=== PATIENT | female | born 1960 | race Caucasian/White ===

== ENCOUNTER → 2020-06-29 10:36 | Outpatient (BNVA) | payer SELFPAY | PROVIDERS: Family Provider Nurse Practitioner; PCP Nurse Practitioner; Visit Provider Nurse Practitioner | DX: R10.9 Unspecified abdominal pain (principal) | CPT/HCPCS: 81000 ==

== ENCOUNTER 2020-07-08 10:05 | Outpatient (CLI) | payer SELFPAY ==
--- NOTE | 2020-07-08 11:30 | CT_ITS ---
WS: [id number] CT ABDOMEN AND PELVIS WITH CONTRAST HISTORY: abdomen pain TECHNIQUE: Imaging performed of the abdomen and pelvis with IV contrast. Single phase imaging of the abdomen. Coronal and sagittal reformats are submitted. All CT scans at [facility] use at least one of these dose optimization techniques: automated exposure control; mA and/or kV adjustment per patient size (includes targeted exams where dose is matched to clinical indication); or iterativ e reconstruction. IV CONTRAST: Omnipaque 300; 95 mL IV. Oral contrast: Yes. DLP: 1055.98 mGycm COMPARISON: None available. Lower thorax: Less than 4 mm pleural-based nodules in the lower lung marks. Heart is normal size. No hiatal hernia. Liver/biliary system: Normal size liver. There is a lobulated cyst in the LEFT lobe of liver measurin g 10 x 12 mm. No bile duct dilatation. Common bile duct is top normal size. Gallbladder: Normal. No gallstones or wall thickening. No pericholecystic fluid. Pancreas: Normal. Spleen: Normal. Adrenal glands: Normal. Right kidney: Normal. Left kidney: Normal. Aorta: Mild atherosclerosis with no aneurysm. Lymphadenopathy: None. Free fluid: None. GI tract: No GI tract obstruction. No evidence for appendicitis. There is mild diffuse constipation. There are few sigmoid diverticula without acute diverticulitis. Abdominal wall: Fat-containing umbilical hernia. Pelvis: Prior hysterectomy. Minimally distended urinary bladder. No free fluid or adenopathy in the p braulio. No mass. Bones: No osteoblastic or osteolytic bone disease. CT/CT abdomen pelvis w con* [id number] IMPRESSION: 1. No acute abdominal or pelvic abnormalities. No ascites or adenopathy apprec iated. 2. Moderate constipation. 3. LEFT lobe hepatic cyst.
[2020-07-08] MEDS: iohexol 300 mg/mL 50 mL Btl PO (11:31)
[2020-07-08] MEDS: iohexol 300 mg/mL 100 mL Btl IV (11:50)
== END 2020-07-08 10:06 | disposition home or self-care (01) ==
LOC: RADWPI 10:15
PROVIDERS: Family Provider Nurse Practitioner; PCP Nurse Practitioner; Visit Provider Nurse Practitioner
DX: R10.9 Unspecified abdominal pain (principal); K59.00 Constipation, unspecified; K76.89 Other specified diseases of liver
CPT/HCPCS: 74177; Q9967

== ENCOUNTER 2020-07-30 07:03 | Outpatient (CLI) | payer SELFPAY ==
--- NOTE | 2020-07-30 08:00 | NM_ITS ---
WS: [id number] NUCLEAR MEDICINE HIDA SCAN WITH GALLBLADDER EJECTION FRACTION HISTORY: upper right abdomen pain COMPARISON: None available. TECHNIQUE: The patient was intravenously injected with 8.0 mCi of TC99m Mebrofenin. Immediate imaging over the right upper quadrant was followed by 5 minute image and additional images for a total of 60 minutes. Normal uptake of radiotracer throughout the liver. Activity identified in the gallbladder at 20 minutes and well distended by 60 minutes. Activity in the proximal small bowel was seen by 20 minutes. Good washout of the radiotracer from the liver by 60 minutes. The patient then drank 8 ounces of Ensure Plus. Ejection fraction at 60 minutes was 90%. Normal GB ej ection fraction is 35-75%. Post fatty meal symptoms: None. NM/NM hepatobiliary w phar* [id number] IMPRESSION: 1. Normal HIDA scan. 2. Normal gallbladder ejection fraction.
== END 2020-07-30 07:04 | disposition home or self-care (01) ==
LOC: RAD 07:07
PROVIDERS: PCP Nurse Practitioner; Visit Provider Nurse Practitioner
DX: R10.11 Right upper quadrant pain (principal)
CPT/HCPCS: 78227; A9537

== ENCOUNTER 2020-08-17 14:08 | Outpatient (CLI) | payer SELFPAY ==
--- NOTE | 2020-08-17 14:15 | US_ITS ---
WS: [id number] ULTRASOUND THYROID TECHNIQUE: Ultrasound of the thyroid. CLINICAL INFORMATION: enlarged thyroid COMPARISON: None. FINDINGS: Thyroid: Right and left thyroid lobes demonstrate heterogeneous echotexture consistent with goiter. Small hypoechoic right thyroid nodule measuring 5.2 x 7.0 x 3.6 mm Right thyroid lobe: 3.8 cm x 1.6 cm x 1.8 cm Left thyroid lobe: 4.0 cm x 1.7 cm x 1.8 cm. 2 hypoechoic left thyroid nodule solid appearance measuring 9.1 x 9.3 x 5.4 mm and 6.6 x 7.9 x 5.1 mm Isthmus: 0.2 mm. Cervical lymphadenopathy: None. US/US thyroid [id number] IMPRESSION: 1. Enlarged thyroid with Heterogeneous echotexture consistent with thyroid goi ter. 2. Subcentimeter bilateral thyroid nodules. Recommend 12 month follow-up.
== END 2020-08-17 14:09 | disposition home or self-care (01) ==
LOC: RAD 14:10
PROVIDERS: PCP Nurse Practitioner; Visit Provider Nurse Practitioner
DX: E04.9 Nontoxic goiter, unspecified (principal); E04.1 Nontoxic single thyroid nodule
CPT/HCPCS: 76536

== ENCOUNTER → 2020-09-24 13:25 | Outpatient (BNVA) | payer SELFPAY | PROVIDERS: PCP Nurse Practitioner; Visit Provider Nurse Practitioner | DX: E03.8 Other specified hypothyroidism (principal); E04.9 Nontoxic goiter, unspecified | CPT/HCPCS: 84443 ==

== ENCOUNTER 2020-11-06 11:48 | Outpatient (CLI) | payer SELFPAY ==
[2020-11-06 11:59] VITALS: BMI 23.0
--- NOTE | 2020-11-06 12:00 | ECG_ITS ---
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 Interpretive Statements NAME OF STUDY: TREADMILL STRESS ECHOCARDIOGRAM INDICATION: Chest Pain, PROCEDURE: At the baseline, the patient's blood pressure was 114/78 with a heart rate of 88. The baseline electrocardiogram showed normal sinus rhythm with some nonspecific T wave changes. The patient exercised for 3 minutes and 20 seconds on a standard Darion protocol. Patient attained a maximum heart rate of 121 beats per minute(75% of the maximum predicted heart rate) with a blood pressure at the peak exercise of 129/84 mm Hg. The EKG at the peak exercise revealed some nonspecific ST-T changes. Because of the artifact, EKG is difficult to interpret. Patient did not have any chest pain or any significant cardiac arrhythmias with the exercise During the recovery phase, there were no new changes. Blood pressure at the end of the recovery phase was 117/74 mm Hg with a heart rate of 71 per minute. CONCLUSION: 1. Nonspecific EKG response to treadmill exercise 2. No exercise-induced chest pain or cardiac arrhythmia 3. Impaired exercise tolerance, attained a maximum of 7.0 METs Electronically Signed On 11-13-2020 12:06:06 MID LEVEL BUSINESS ANALYST by Christy Gasca M.D. [email or web address]
[2020-11-06 12:37] VITALS: BP 117/74; PULSE 70
--- NOTE | 2020-11-06 12:38 | PC.NURSE ---
pt was only able to complete 2:45 on the treadmill. Stated her chest hurt too much to continue. went ahead and completed echo part. pt stated her chest pain/pressure is a constant 4. pt stated she ended the treadmill portion with a 9 on a 0-10 scale.
--- NOTE | 2020-11-06 13:00 | USCV_ITS ---
Stress Echo Orly Jimenez Age: 60 Gender: F : 1960 Exam Date: 11/06/2020 12:14 Ordering Phys: Christy Gasca MD ([email or web address]) Technologist: Giovanna La [place] [facility] [place]ication: chest pain Rhythm: Sinus Patient History: Chest pain Cardiac Medications: NONE Medications in past 24 hours: NONE Contrast: Stress Results Protocol: Darion Total dose(mL): Exercise Duration (min:sec): 2:50 METS: 7 Resting HR: 86 Resting BP: 114 / 78 Peak HR: 121 Peak BP: 129 / 78 Max Predicted HR: 161 75 % Max Predicted HR Target HR: 137 Double Product: 11308 Stress Summary: The patient's target heart rate was not achieved due to chest pain BP Response: Normal Reason for Termination: chest pain Cardiac Symptoms: sharp chest pains ECG Analysis Resting ECG: Please see separate report Stress ECG: Please see separate report Arrhythmia: Please see separate report MEASUREMENTS (Male/Female) Normal Values FINDINGS The baseline echocardiogram revealed normal LV size ejection fraction. Segmental wall motion analysis revealed no gross wall motion normalities. The aortic root appears to be of normal size. No pericardial effusion. No significant morphology abnormalities were noted in the mitral valve or the aortic valve. With the peak exercise, there is good augmentation of all the segments with no exercise-induced wall motion normalities. During the recovery phase, no new wall motion normalities were noted. CONCLUSIONS Normal echocardiographic response to treadmill exercise. No significant coronary ischemia, based on the above findings Dr Christy Gasca MD [facility] (Electronically Signed) Final Date: 06 November 2020 16:27 S
== END 2020-11-06 11:49 | disposition home or self-care (01) ==
PROVIDERS: PCP Nurse Practitioner; Visit Provider Internal Medicine Cardiovascular Disease
DX: R07.89 Other chest pain (principal)
CPT/HCPCS: 93017; 93350

== ENCOUNTER → 2020-12-09 09:37 | Outpatient (BNVA) | payer SELFPAY | PROVIDERS: PCP Nurse Practitioner; Visit Provider Internal Medicine Cardiovascular Disease | DX: R06.00 Dyspnea, unspecified (principal); Z20.822 Contact with and (suspected) exposure to COVID-19 | CPT/HCPCS: 87635 ==

== ENCOUNTER → 2020-12-09 09:37 | Outpatient (BNVA) | payer SELFPAY | PROVIDERS: PCP Nurse Practitioner; Visit Provider Internal Medicine Cardiovascular Disease | DX: Z01.812 Encounter for preprocedural laboratory examination (principal); R06.00 Dyspnea, unspecified | CPT/HCPCS: 87635 ==

== ENCOUNTER 2020-12-15 08:12 | Outpatient (CLI) | payer SELFPAY ==
--- NOTE | 2020-12-15 14:00 | PFTS_ITS ---
Date of Study:12/15/20 Date of Dictation:12/18/20 MECHANICS: Forced vital capacity (FVC) is normal. Forced expiratory volume in one second (FEV1) is normal. FEV1/FVC is normal. FLOW VOLUME LOOP: Normal . LUNG VOLUMES: Total lung capacity (TLC) is normal. Residual volume (RV) is mildly reduced 79%. DIFFUSING CAPACITY FOR CARBON MONOXIDE: Normal . INTERPRETATION: Normal spirometry. Mildly reduced lung volumes suggestive of some restriction. Normal gas transfer. Please correlate clinically MTDD
== END 2020-12-15 08:13 | disposition home or self-care (01) ==
LOC: RT 08:13
PROVIDERS: PCP Nurse Practitioner; Visit Provider Internal Medicine Cardiovascular Disease
DX: R06.00 Dyspnea, unspecified (principal)
CPT/HCPCS: 94010; 94726; 94729

== ENCOUNTER 2020-12-31 11:09 | Outpatient (CLI) | payer SELFPAY ==
[2020-12-31 11:56] LABS: Basophils # 0.1 10^3/uL (0.0-0.1); Basophils % 0.9 %; Eosinophils # 0.1 10^3/uL (0.0-0.8); Eosinophils % 1.3 %; Hematocrit 42.4 % (37.0-47.0); Hemoglobin 13.9 g/dL (11.5-15.3); Lymphocytes # 2.5 10^3/uL (0.8-4.8); Lymphocytes % 36.9 %; Mean Corpuscular HGB Conc 32.8 g/dL (30.0-36.0); Mean Corpuscular Hemoglobin 31.4 pg (28.0-34.0); Mean Corpuscular Volume 95.7 fL (81-99); Mean Platelet Volume 9.6 fL (7.4-10.4); Monocytes # 0.5 10^3/uL (0.2-0.9); Monocytes % 6.6 %; Neutrophils # 3.66 10^3/uL (1.8-7.7); Neutrophils % 54.2 %; Nucleated Red Blood Cells % 0 %; Platelet Count 247 10^3/cmm (130-400); Red Blood Count 4.43 10^6/uL (4.1-5.3); Red Cell Distribution Width 12.2 % (12.1-15.1); White Blood Count 6.8 10^3/uL (4.0-10.0)
[2020-12-31 12:22] LABS: Alanine Aminotransferase 34 U/L (0-33); Albumin Level 3.9 g/dL (3.5-5.2); Alkaline Phosphatase 139 IU/L (35-105); Anion Gap 11.9 (5-19); Aspartate Amino Transferase 25 U/L (0-32); Blood Urea Nitrogen 16 mg/dL (6-20); C Reactive Protein 2.1 mg/L (0.0-4.9); Calcium 8.7 mg/dL (8.5-10.5); Carbon Dioxide 27 mmol/L (22-29); Chloride 103 mmol/L (98-107); Globulin 3.2 g/dL (1.3-4.6); Glomerular Filtration Rate 50.8 mL/min (90-130); Glucose 78 mg/dL (65-115); Osmolality Calculated 286 mOsm/kg (285-295); Potassium 3.9 mmol/L (3.5-5.1); Sodium 138 mmol/L (136-145); Total Bilirubin 0.2 mg/dL (0.15-1.2); Total Protein 7.1 g/dL (6.6-8.7)
[2020-12-31 12:35] LABS: Erythrocyte Sedimentation Rate 12 mm/hr (0-15)
[2021-01-01 14:23] LABS: Anti-Double Strand DNA AB <1 IU/mL; Jo-1 Antibody <1.0 NEG AI (<1.0 NEG); SM/RNP Antibodies <1.0 NEG AI (<1.0 NEG); SS-B/LA IGG <1.0 NEG AI (<1.0 NEG); Scleroderma Ab(Scl-70) Ab <1.0 NEG AI (<1.0 NEG); Ss-A/Ro Igg <1.0 NEG AI (<1.0 NEG)
[2021-01-01 16:28] LABS: Alternaria Alternata (M6) Ige <0.10 kU/L; Alternaria Class 0; Bermuda Class 0; Bermuda Grass (G2) Ige <0.10 kU/L; Cat Dander (E1) Ige <0.10 kU/L; Cat Dander Class 0; Common Ragweed (Short) (W1) Ig <0.10 kU/L; D. Farinae Class 0; Dermatophagoides Class 0; Dermatophagoides Farinae (D2) <0.10 kU/L; Dermatophagoides Pteronyssinus <0.10 kU/L; Dog Dander (E5) Ige <0.10 kU/L; Dog Dander Class 0; Elm (T8) Ige <0.10 kU/L; Elm Class 0; English Plantain (W9) Ige <0.10 kU/L; English Plantain Class 0; House Dust (Greer) (H1) Ige <0.10 kU/L; House Dust (Hollister- Stier) <0.10 kU/L; House Dust Class 0; Immunoglobulin E 3 kU/L (<OR=114); Immunoglobulin E 4 kU/L (<OR=114); Johnson Grass (G10) Ige <0.10 kU/L; Johnson Grass Cl 0; June Grass Class 0; June Grass(Kentucky Blue) (G8) <0.10 kU/L; Lamb'S Quarters (Goose Foot) <0.10 kU/L; Lamb'S Quarters Class 0; Maple (Box Elder) (T1) Ige <0.10 kU/L; Maple Class 0; Meadow Fescue (G4) Ige <0.10 kU/L; Meadow Fescue Class 0; Mucor Racemosus Class 0; Oak (T7) Ige <0.10 kU/L; Oak Class 0; Orchard Grass (Cocksfoot) (G3) <0.10 kU/L; Penicillium Class 0; Penicillium Notatum (M1) Ige <0.10 kU/L; Perennial Rye Grass (G5) Ige <0.10 kU/L; Perennial Rye Grass Class 0; Ragweeed Class 0; Rough Marsh Elder (W16) Ige <0.10 kU/L; Rough Marsh Elder Class 0; Sweet Vernal Class 0; Sweet Vernal Grass (G1) Ige <0.10 kU/L; Timothy Grass (G6) Ige <0.10 kU/L; Timothy Grass Class 0
[2021-01-04 16:12] LABS: Aspergillus Fumigatus, Igg Ab, 30.3 mg/L (<=102)
== END 2020-12-31 11:10 | disposition home or self-care (01) ==
LOC: LAB 11:12
PROVIDERS: PCP Nurse Practitioner; Visit Provider Internal Medicine Pulmonary Disease
DX: J45.909 Unspecified asthma, uncomplicated (principal); J98.4 Other disorders of lung; R06.00 Dyspnea, unspecified; Z82.61 Family history of arthritis; J84.9 Interstitial pulmonary disease, unspecified; R06.02 Shortness of breath
CPT/HCPCS: 36415; 80053; 82565; 82785; 82977; 85025; 85651; 86003; 86140; 86225; 86235; 86431

== ENCOUNTER 2021-02-24 10:31 | Outpatient (CLI) | payer SELFPAY ==
--- NOTE | 2021-02-24 10:30 | CT_ITS ---
WS: [id number] HIGH-RESOLUTION CT CHEST TECHNIQUE: High-resolution CT chest with inspiratory, expiratory, prone imaging CLINICAL INFORMATION: J98.4 - Other disorders of lung COMPARISON: None. DLP: 306.[address] scans at [facility] use at least one of these dose optimization techniques: automat ed exposure control; mA and/or kV adjustment per patient size (includes targeted exams where dose is matched to clinical indication); or iterative reconstruction. FINDINGS: High-resolution CT of the chest. No evidence of interstitial lung disease. No subpleural honeycombing . No significant bronchiectasis. Mild air trapping on the expiratory imaging. Several noncalcified subpleural nodules left lower lobe and left upper lobe measuring up to 3 to 4 mm . Recommend further evaluation with diagnostic chest CT. No mediastinal or hilar lymphadenopathy. Adr enal glands are normal. CT/CT chest wo con 29593 IMPRESSION: 1. No evidence of interstitial lung disease. No subpleural honeycombing. No si gnificant bronchiectasis. 2. Several noncalcified left lung nodules measuring up to 3 to 4 mm. Recommend further evaluation of the chest with contrast enhanced diagnostic chest CT. 3. No mediastinal or hilar lymphadenopathy. 4. Mild air trapping on the expiratory imaging.
[2021-02-24 12:50] LABS: Gamma Glutamyl Transferase 55 U/L (5-36)
[2021-02-25 13:12] LABS: Cyclic Citrullinated Peptide <16 UNITS
== END 2021-02-24 10:32 | disposition home or self-care (01) ==
LOC: RADWPI 10:41 → RAD 10:44
PROVIDERS: Family Provider Internal Medicine Rheumatology; PCP Nurse Practitioner; Visit Provider Internal Medicine Pulmonary Disease
DX: J98.4 Other disorders of lung (principal); M19.041 Primary osteoarthritis, right hand; M19.042 Primary osteoarthritis, left hand; Z79.899 Other long term (current) drug therapy; R07.89 Other chest pain; G57.03 Lesion of sciatic nerve, bilateral lower limbs; R79.89 Other specified abnormal findings of blood chemistry; R74.8 Abnormal levels of other serum enzymes; Z82.61 Family history of arthritis; Z87.891 Personal history of nicotine dependence
CPT/HCPCS: 36415; 71250; 82565; 82977; 86431; 99204

== ENCOUNTER 2021-03-08 09:05 | Outpatient (CLI) | payer SELFPAY ==
--- NOTE | 2021-03-08 10:00 | XR_ITS ---
WS: [id number] Exam: XR hand LT min 3V* [id number] Date/Time of Exam: 03/08/2021 10:00 AM Reason For Exam: Z82.61 - Family history of arthritis No acute fracture or dislocation. Minimal degenerative changes in the IP joints. Moderate degenerativ e change at the CMC joint of the thumb. No soft tissue foreign bodies are seen. XR/XR hand LT min 3V* 11355 IMPRESSION: 1. No fracture or dislocation. 2. Degenerative changes as noted above.
--- NOTE | 2021-03-08 10:00 | XR_ITS ---
WS: [id number] Exam: XR hand RT min 3V* [id number] Date/Time of Exam: 03/08/2021 10:00 AM Reason For Exam: Z82.61 - Family history of arthritis No fracture or dislocation. Mild degenerative changes of the MP and IP joints. Moderate degenerative change at the PIP joint of the fifth finger. No soft tissue foreign bodies are seen. XR/XR hand RT min 3V* [id number] IMPRESSION: 1. Degenerative changes as noted above. 2. No fracture or bone destruction.
== END 2021-03-08 09:06 | disposition home or self-care (01) ==
LOC: RADWPI 09:09 → RAD 09:54
PROVIDERS: Family Provider Internal Medicine Rheumatology; PCP Nurse Practitioner; Visit Provider Internal Medicine Rheumatology
DX: M19.90 Unspecified osteoarthritis, unspecified site (principal); R74.8 Abnormal levels of other serum enzymes; R79.89 Other specified abnormal findings of blood chemistry; Z79.899 Other long term (current) drug therapy; Z82.61 Family history of arthritis
CPT/HCPCS: 73130

== ENCOUNTER → 2021-04-05 15:30 | Outpatient (BNVA) | payer SELFPAY | PROVIDERS: Family Provider Internal Medicine Rheumatology; PCP Nurse Practitioner; Visit Provider Nurse Practitioner | DX: J98.4 Other disorders of lung (principal); E03.8 Other specified hypothyroidism; E78.5 Hyperlipidemia, unspecified; R11.0 Nausea; R23.8 Other skin changes | CPT/HCPCS: 81000 ==

== ENCOUNTER → 2021-04-07 09:02 | Outpatient (BNVA) | payer SELFPAY | PROVIDERS: Family Provider Internal Medicine Rheumatology; PCP Nurse Practitioner; Visit Provider Internal Medicine Cardiovascular Disease | DX: R06.00 Dyspnea, unspecified (principal); R07.89 Other chest pain; E03.8 Other specified hypothyroidism; E78.5 Hyperlipidemia, unspecified; Z79.01 Long term (current) use of anticoagulants; Z20.822 Contact with and (suspected) exposure to COVID-19 | CPT/HCPCS: 80053; 80061; 82607; 84443; 85025; 85610; 86850; 86900; 87635 ==

== ENCOUNTER → 2021-04-13 07:35 | Day surgery (SDC) | payer SELFPAY ==
[2021-04-13] VITALS (14 sets, daily range): BP systolic 92–126; BP diastolic 58–78; PULSE 64–94; RESP 12–18; TEMP 36.3; O2SAT 90–99; BMI 23.6
--- NOTE | 2021-04-13 07:30 | XACV_ITS ---
Exam Room: 1 Ht: 160 cm Wt: 60 kg BSA: 1.65 m2 Gender: Female : 1960 Any Known Allergies: No known allergies Exam Priority: Routine Procedure(s): Procedure Description: Diagnostic procedure Procedure Description: Left Heart Catheterization Procedure Description: Left ventriculography Procedure Description: Coronary Angiography Diagnostic Cath Status: Elective Diagnostic Findings * The left main is a medium caliber vessel with no significant stenotic lesions. * The left anterior descending artery is a medium caliber vessel which appears to wrap around the LV apex minimally. The proximal segment of the artery was found to have mild to moderate coronary calcification. There was an eccentric lesion of around 30% in the proximal segment. No other significant stenotic lesions were noted. The artery gives off the 2 diagonal branches proximally. Mild diffuse intimal regularities were noted in these vessels.. * The left circumflex artery is a dominant vessel with no significant stenosis. * The right coronary artery is a relatively small caliber nondominant vessel with no significant stenotic lesions. Conclusions 1. This is a 61-year-old white female with history of dyslipidemia, COPD, smoking abuse, hypothyroidism, presents with complaints of chest pain and shortness of breath. She had an exercise stress echo which was unremarkable. She had some EKG changes with the exercise. Echocardiogram was unremarkable. In view of the patient's ongoing chest symptoms, in order to further evaluate the coronary status, a cardiac catheterization was recommended. Patient underwent left heart catheterization with left and right coronary angiogram and LV angiogram today. The findings are as follows.. 2. The left anterior descending artery was found to have around 30% eccentric lesion proximally. There was mild to moderate calcification in the proximal segment of the artery. No other significant stenotic lesions. Patient was found to have a left dominant coronary circulation. LV ejection fraction was 65%. LVEDP was 30 mmHg. Based on this angiogram findings, it was decided to treat the patient medically. She was transferred back to the [facility] in stable condition. Recommendations * Continue current medical management and risk factor modification. Diagnostic RX Recommendation: medical therapy and/or counseling LV EDP: 13 mmHg Ventriculography Ejection Fraction: 65.0 % Left Ventriculography Findings: * LV gram was performed in the BURGOS projection. LV cavity appears to be normal size. LV ejection fraction was around 65%. No segmental wall motion abnormalities were noted. No significant mitral valve prolapse or mitral regurgitation were noted. The LVEDP was 13 mmHg.. Pressures Phase:Rest AO : 107 / 65 ( 84 ) @ 7:48:00 AM 92 / 28 ( 42 ) @ 7:51:00 AM 121 / 22 ( 55 ) @ 7:59:00 AM LV : 119 / 1 / 14 @ 7:58:00 AM 208 / 45 / 136 @ 7:58:00 AM Clinical Evaluation EBL: 5mL-10mL Procedural Details Procedure Consent Obtained. Pre-Procedure Time Out. Identified patient by full name and date of as verbalized by the patient/guarantor. Does the consent match the physician's order: Yes. Accurate & Complete Informed Consent: Yes. Inpatient/Outpatient History & Physical on Chart: Yes. If H&P is completed, is and addenduem needed: No. Visualize and Verify Site with Patient/Guarantor: N/A. Relevant Radiology Images available: Yes. The risks, benefits, and alternatives of sedation and/or procedure were discussed by physician. The patient agrees to continue. Procedure started. HA Clinical Fraility Score: 3: Managing Well. Asp Web Developer Indications: Worsening Angina. Chest Pain Symptom Assessment: Typical Angina Symptoms. Cardiovascular Instability: No. Correct patient, site and procedure confirmed by cath team. Current diagnosis: worsening angina. PERRLA. 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 Lungs clear x 5 lobes. IV Site on Arrival: 20 gauge in the left anticubital. IV Fluids: 0.9% NaCl at KVO. 0 mL infused prior to lab pack chemist. Pre Procedural Pulses: bilateral dorsalis pedis was 3+. Pre Procedural Pulses: bilateral posterior tibial was 3+. Pre Procedural Pulses: bilateral radial was 3+. Oxygen started at 2liters/min via nasal canula. right groin was prepped with chloroprep then draped in the usual sterile fashion. right radial was prepped with chloroprep then draped in the usual sterile fashion. Physician notified. Baseline sample Acquired. HR: 80 BPM. Patient's family unavailable. Equipment: 6F - Radial. Cardiac Cath Pack. ACIST Manifold Kit Model BT 2000. Heparinized Saline (2 units/mL), 1000 mL bag. Physician arrived. Physician scrubbed in. Immediate Pre-Procedure Time Out. Correct Patient: Yes; Correct Procedure: Yes; Correct Site: Yes; Correct Patient Position: Yes; Correct Supplies: Yes; Dried Flammable Prep: Yes; Blood Products Available: N/A. Lidocaine 1% infiltrated to the right radial. Arterial access obtained. A 5 honduran Mik catheter in over the exchange wire. Multiple views taken of left coronary artery. Catheter redirected to the RCA & unable to cannulate. Catheter removed over the exchange wire. A 5 honduran JR4 catheter in over the exchange wire. Multiple views taken of right coronary artery. Catheter removed over the exchange wire. A 5 honduran Angled Pig catheter in over the exchange wire. EDP Sample taken: LV 119/1,14; HR: 97 BPM; SpO2: 99%. LV gram performed in BURGOS @ 10 mL/second for a total of 30 mL. EDP Sample taken: LV 208/45,136; HR: 96 BPM; SpO2: 99%. Pullback taken: LV Off; AO Off; Mean: , Peak to Peak: , SEP: ; HR: 98 BPM; SpO2: 99%. Catheter removed over the exchange wire. Patient's family updated via telephone by Dr. Gasca. TR band placed. Hemostasis obtained. PERRLA. 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 No VTE prophylaxis required. Total IV fluids: 250 mL. Medication's Wasted: Lidocaine 1% = 18 mL. Medication's Wasted: Nitro = 49.8 mg. Medication's Wasted: Heparin = 1000 Units. A TR Band was successful obtaining hemostatsis at the Right Radial artery insertion site. Post-op diagnosis: Mild CAD. Complications: none. Estimated blood loss: 5mL-10mL. Patient transferred by wheelchair to CPRU. Procedure completed. Vital chart was stopped. Access Site Site: Right Radial artery Sheath Size: 6 Fr Hemostasis Method: TR Band Hemostasis Success: Successful Procedure Medications Start: 8:40 AM Stop: 8:40 AM Medication: Versed Amount: 1 mg Route: I.V. Start: 8:40 AM Stop: 8:40 AM Medication: Fentanyl Amount: 50 mcg Route: I.V. Start: 8:41 AM Stop: 8:41 AM Medication: Versed Amount: 1 mg Route: I.V. Start: 8:41 AM Stop: 8:41 AM Medication: Fentanyl Amount: 50 mcg Route: I.V. Start: 8:44 AM Stop: 8:44 AM Medication: Verapamil Amount: 5 mg Route: I.A. Start: 8:45 AM Stop: 8:45 AM Medication: 0.9% Saline Amount: 250 ml Route: I.V. bolus Start: 8:45 AM Stop: 8:45 AM Medication: Nitrogylcerin Amount: 200 mcg Route: I.A. Start: 8:47 AM Stop: 8:47 AM Medication: Versed Amount: 1 mg Route: I.V. Start: 8:48 AM Stop: 8:48 AM Medication: Fentanyl Amount: 50 mcg Route: I.V. Start: 8:57 AM Stop: 8:57 AM Medication: Versed Amount: 1 mg Route: I.V. Start: 8:57 AM Stop: 8:57 AM Medication: Fentanyl Amount: 50 mcg Route: I.V. Start: 8:58 AM Stop: 8:58 AM Medication: Heparin Amount: 5000 units Route: I.V. I, the attending physician, have reviewed and verified all procedure medications. Yes, all medications given per verbal order History/Risk Factors Hypertension: No Dyslipidemia: No Peripheral Arterial Disease (PAD): No Myocardial Infarction (WA): No Obesity: No Renal Disease: No Tobacco Use: Former Prior Interventions PCI: No CABG: No Valve Surgery: No Report Signatures Finalized by Dr Christy Gasca MD [facility] on 04/13/2021 11:28 PM
[2021-04-13] MEDS: diphenhydrAMINE 50 mg Capsule PO (07:50)
--- NOTE | 2021-04-13 08:35 | P.HPUD_ITS ---
Surgery/Procedure H&P Update DATE OF PROCEDURE: April 13, 2021 DATE H&P PERFORMED: 03/29/21 H&P UPDATE INFORMATION: I have reviewed H&P completed within last 30 days, I have examined patient prior to procedure, No changes to prior documentation and H&P is in [facility] EMR on date indicated PREOP DIAGNOSIS: ASHD PRIMARY INDICATION FOR PROCEDURE: abnormal EKG withe exercise PLANNED PROCEDURE: Operation Date: 04/13/21 08:30 Proposed Procedures p left Cardiac Catheterization 84066 r07.89(Left) - Christy Gasca MD PATIENT REASSESSED PRIOR TO SEDATION, WITH NO CHANGE NOTED: Yes PHYSICAL EXAM: alert, oriented x 3, clear to auscultation bilaterally, regular rate & rhythm and operative site marked AIRWAY EVAL/ANESTHESIA PLAN: normal airway, see other exam findings, ASA II, Monitored Anesthesia, Local Anesthesia, Risks, benefits & alternatives of sedation and/or procedure discussed and Patient agrees to continue as planned
--- NOTE | 2021-04-13 09:03 | SUR.PHASEII ---
Received the patient back from the chemical laboratory chief s/p diagnostic left heart cath via wheelchair. Ambulated to the bed easily. deburrer strip placed and vital signs obtained. TR band intact to the right wrist with palpable radial pulse. Post radial activity instructions verbally given to the patient with her understanding verbalized. No other assessment changes noted from pre cath assessment.
[2021-04-13] MEDS: sodium chloride 0.9% 1,000 ML 125 ML IV (09:10)
--- NOTE | 2021-04-13 10:06 | SUR.PHASEII ---
Letting the air out of the TR band per protocol. Patient resting quietly with eyes closed. No concerns voiced at this time. No other assessment changes noted.
--- NOTE | 2021-04-13 11:15 | PC.NURSE ---
The TR band is coming off slowly, 1-2ml of air every 20-25 minutes. No other assessment changes at this time.
--- NOTE | 2021-04-13 11:30 | SUR.PHASEII ---
TR band off. No bleeding or hematoma, no oozing. Cleansed with warm water and patted dry. A large band aid was applied to the site with 2 4x4s over that secured with coban. Post radial LHC activity instructions were again verbalized to the patient with her verbalization noted.
--- NOTE | 2021-04-13 12:42 | SUR.PHASEII ---
Patient given all DC instructions verbally and paper copy. She was Discharged via wheelchair at 1226 with her ride waiting in the Main Admissions parking.
== END | disposition home or self-care (01) ==
PROVIDERS: PCP Nurse Practitioner; Visit Provider Internal Medicine Cardiovascular Disease
DX: I25.10 Atherosclerotic heart disease of native coronary artery without angina pectoris (principal); R94.31 Abnormal electrocardiogram [ECG] [EKG]; Z87.891 Personal history of nicotine dependence; Z82.49 Family history of ischemic heart disease and other diseases of the circulatory system
CPT/HCPCS: 36415; 93452; C1769; C1887; C1894; J1644; J2250; J3010; J3490; J7030; Q0163; Q9967

== ENCOUNTER → 2021-04-21 16:51 | Outpatient (BNVA) | payer SELFPAY | PROVIDERS: PCP Nurse Practitioner; Visit Provider Nurse Practitioner Family | DX: I25.10 Atherosclerotic heart disease of native coronary artery without angina pectoris (principal); Z09 Encounter for follow-up examination after completed treatment for conditions other than malignant neoplasm | CPT/HCPCS: 80048 ==

== ENCOUNTER → 2021-08-02 15:52 | Outpatient (BNVA) | payer SELFPAY | PROVIDERS: PCP Nurse Practitioner; Visit Provider Nurse Practitioner Family | DX: E03.8 Other specified hypothyroidism (principal); E78.5 Hyperlipidemia, unspecified | CPT/HCPCS: 80053; 80061; 84439; 84443; 85025; 86705; 86706; 86709; 86803; 87340 ==

== ENCOUNTER 2021-09-30 08:09 | Outpatient (CLI) | payer SELFPAY ==
--- NOTE | 2021-09-30 08:45 | US_ITS ---
WS: [id number] Complete ABDOMINAL ULTRASOUND HISTORY: E84.8 - Cystic fibrosis with other manifestations COMPARISON: None available. Liver: 11.8 cm in length. Liver is normal size and echogenicity with no mass or intrahepatic dilatati on. Portal Vein: Normal hepatopetal flow with monophasic waveform. Gallbladder: Normally distended with no gallstones, wall thickening or pericholecystic fluid. Gallbladder wall thickness: 0.2 cm. Pancreas: Normal size and echogenicity. CBD: 0.4 cm. Right kidney: 10.5 cm x 4.8 cm x 4.4 cm. No mass, cortical thickening or hydronephrosis. Left kidney: 10.1 cm x 4.7 cm x 4.8 cm. No mass, cortical thickening or hydronephrosis. Spleen: Normal size and echogenicity. Abdominal aorta and IVC are within normal limits. No ascites. US/US abdomen complete* [id number] IMPRESSION: Normal complete abdomen ultrasound.
== END 2021-09-30 08:10 | disposition home or self-care (01) ==
LOC: RAD 08:13
PROVIDERS: PCP Nurse Practitioner; Visit Provider Nurse Practitioner Family
DX: E84.8 Cystic fibrosis with other manifestations (principal); R74.8 Abnormal levels of other serum enzymes
CPT/HCPCS: 76700

== ENCOUNTER → 2022-06-28 09:43 | Outpatient (BNVA) | payer SELFPAY | PROVIDERS: PCP Nurse Practitioner; Visit Provider Dermatology | DX: Z01.89 Encounter for other specified special examinations (principal); I25.10 Atherosclerotic heart disease of native coronary artery without angina pectoris; E78.5 Hyperlipidemia, unspecified; E03.9 Hypothyroidism, unspecified; M19.041 Primary osteoarthritis, right hand; J45.909 Unspecified asthma, uncomplicated ==